=== PATIENT | male | born 1970 | race Two or more races ===

== ENCOUNTER 2016-08-10 21:12 | Inpatient (IN) | payer OTHER ==
[~2016-08-10] VITALS: Ht 165.1 cm; Wt 78.0 kg
--- NOTE | 2016-08-10 21:15 | NUR ---
PT LORI AND SINA, [facility], PT HAS BEEN VOMTING BLOOD ALL DAY TODAY AND PT STATES HE IS A CHRONIC DRINKER, PT STATES HE HAS NOT HAD A DRINK IN 2 DAYS, PT ON MONITOR, IN GOWN, GEO PLACEDMD IN ROOM, LABS DRAWN, PT ACTIVELY VOMITING BLOOD, WILL CONTINUE TO MONITOR.
[2016-08-10] MEDS ORDERED: ONDANSETRON HCL/PF - ER 4 MG/2 ML VIAL IV ONE (21:30)
[2016-08-10] MEDS ORDERED: PANTOPRAZOLE 80 MG in IV NS 0.9% 500 ML IV ONE (21:30)
[2016-08-10] MEDS ORDERED: OCTREOTIDE 50 MCG/ML AMPUL IV ONE (21:30)
[2016-08-10] MEDS ORDERED: PANTOPRAZOLE 80 MG in IV NS 0.9% 100 ML IV ONE (21:30)
[2016-08-10] MEDS ORDERED: OCTREOTIDE 1,250 MCG in IV NS 0.9% 250 ML IV ONE (21:30)
[2016-08-10 21:38] LABS: BASOPHILS # (AUTO) 0.1 /CMM (0.0-0.2); BASOPHILS % (AUTO) 0.9 % (0.0-2.0); EOSINOPHILS % (AUTO) 0.4 % (0.0-6.0); HEMATOCRIT 29 % (39-51); HEMOGLOBIN 9.7 g/dL (13.5-17.5); LYMPHOCYTES # (AUTO) 0.8 /CMM (0.8-4.8); LYMPHOCYTES % (AUTO) 15.2 % (20.0-44.0); MEAN CORPUSCULAR HEMOGLOBIN 30 PG (26.0-33.0); MEAN CORPUSCULAR HGB CONC 34 g/dl (31.0-36.0); MEAN CORPUSCULAR VOLUME 88 fL (80-96); MONOCYTES # (AUTO) 0.6 /CMM (0.1-1.30); MONOCYTES % (AUTO) 10.1 % (2.0-12.0); NEUTROPHILS # (AUTO) 4.1 /CMM (1.8-8.9); NEUTROPHILS % (AUTO) 73.4 % (43.0-81.0); RDW COEFFICIENT OF VARIATION 13.8 (11.5-15.0); RED BLOOD CELL COUNT(AUTO) 3.25 MIL/uL (4.5-6.0); WHITE BLOOD COUNT (AUTO) 5.6 K/uL (4.3-11.0)
[2016-08-10] MEDS ORDERED: PANTOPRAZOLE 40 MG VIAL ONE ×2 (21:38→21:40)
[2016-08-10] MEDS ORDERED: ONDANSETRON HCL/PF 4 MG/2 ML VIAL ONE (21:38)
[2016-08-10] MEDS ORDERED: IV NS 0.9% 500 ML IV ONE (21:38)
[2016-08-10] MEDS ORDERED: IV NS 0.9% 250 ML IV ONE (21:38)
[2016-08-10] MEDS ORDERED: OCTREOTIDE 100 MCG/ML VIAL ONE ×2 (21:39→21:42)
[2016-08-10] MEDS ORDERED: IV SET PRIMARY PUMP SET 1 EA INFUS.SET MC ONE ×4 (21:39→22:28)
[2016-08-10 21:40] LABS: PLATELET COUNT (AUTO) 38 /CMM (150-450)
[2016-08-10] MEDS ORDERED: OCTREOTIDE 500 MCG/ML VIAL ONE ×2 (21:40→21:57)
[2016-08-10] MEDS ORDERED: IV NS 0.9% 100 ML IV ONE (21:41)
[2016-08-10] MEDS ORDERED: IV NS 0.9% 1,000 ML ONE ×2 (21:45→21:51)
[2016-08-10] MEDS ORDERED: IV SET PRIMARY 1 EA INFUS.SET MC ONE ×2 (21:45→21:51)
[2016-08-10 21:54] LABS: INR 1.43 (0.87-1.13); PROTHROMBIN TIME 15.6 SECS (9.5-12.7)
[2016-08-10] MEDS ORDERED: IV NS 0.9% 1,000 ML BAG IV ONE ×2 (22:00)
[2016-08-10 22:12] LABS: ALBUMIN 2.9 g/dL (3.4-5.0); BILIRUBIN,DIRECT 0.6 mg/dL (0.0-0.2); BILIRUBIN,TOTAL 1.8 mg/dL (0.2-1.0); CALCIUM, SERUM 7.9 mg/dL (8.5-10.1); CREATININE 0.9 mg/dL (0.6-1.3); POTASSIUM 3.5 mmol/L (3.5-5.1); TOTAL PROTEIN, SERUM 7.1 g/dL (6.4-8.2)
--- NOTE | 2016-08-10 22:39 | NUR ---
PT NOT TOLERATING THE NGTUBE, AFTER 3 ATTEMPS MD BAIRD DECIDEDNOT TO DO NG TUBE AT THIS TIME WILL CONTINUE TO MONITOR.
[2016-08-10 22:45] LABS: ANISOCYTOSIS 1+; BAND % (MANUAL) 6 % (0.0-5.0); LYMPHOCYTES % (MANUAL) 6 % (16-48); MONOCYTES % (MANUAL) 8 % (0-11.0); NEUTROPHILS % (MANUAL) 80 (42-76); PLATELET ESTIMATE DECREASED
[2016-08-10] MEDS ORDERED: LORAZEPAM INJ 2 MG/ML VIAL ONE (22:50)
[2016-08-10] MEDS ORDERED: LORAZEPAM INJ 2 MG/ML VIAL IV ONE (23:00)
--- NOTE | 2016-08-10 23:20 | NUR ---
FIVE ROLL REFINER BATCH MIXER : ADMISSION TO ROOM 257 PT RECEIVED VIA GURNEY FROM ER. PT AWAKE AND ALERT X2 . PT ON ROOM AIR , SATURATING 95% . SR ON MONITOR. PT TRANSFERRED TO BED VIA GURNEY. PT URINATED IN URINAL . PT HAS SANDOSTATIN AND PROTONIX DRIP RUNNING THROUGH BOTH IV'S . PT BELONGINGS AT BEDSIDE. ERIBERTO GROUND CREWMAN MISSION SUPPORT AT BEDSIDE TO ASSESS PT.
[2016-08-10] MEDS ORDERED: LORAZEPAM INJ 2 MG/ML VIAL IV PRN (23:30)
[2016-08-10 23:52] VITALS: BP 99/60
[2016-08-11] VITALS (48 sets, daily range): BP systolic 93–150; BP diastolic 43–89
[2016-08-11] MEDS ORDERED: PHYTONADIONE INJ 10 MG/1 ML AMPUL SQ SCH
[2016-08-11] MEDS ORDERED: IV NS 0.9% 1,000 ML ONE (00:21)
[2016-08-11] MEDS ORDERED: BLOOD IV SET 1 EA INFUS.SET MC ONE ×2 (00:21→08:53)
[2016-08-11] MEDS ORDERED: IV NS 0.9% 250 ML IV ONE ×3 (00:21→08:54)
[2016-08-11] MEDS ORDERED: IV SET PRIMARY PUMP SET 1 EA INFUS.SET MC ONE ×2 (00:21→10:44)
[2016-08-11] MEDS ORDERED: PHYTONADIONE INJ 10 MG/1 ML AMPUL ONE (00:22)
[2016-08-11] MEDS: IV NS 0.9% 1,000 ML IV PRN ×2 (00:28→18:33)
--- NOTE | 2016-08-11 00:42 | NUR ---
DIRECTOR OF PHYSICAL EDUCATION: FIRST UNIT OF FFP RUNNING . NO REACTIONS NOTED AT THIS TIME.
--- NOTE | 2016-08-11 01:00 | NUR ---
DATA DESIGNER: PT C/O HEADACHE 01/26 . SPOKE TO ERIBERTO POLLACK . GAVE ORDER FOR MORPHINE IVP. WILL GIVE TO PT , DIM LIGHTS, AND REPOSITION NEEDED.
[2016-08-11] MEDS ORDERED: MORPHINE SULFATE INJ 2 MG/ML DISP.SYRIN ONE ×2 (01:05→04:32)
[2016-08-11] MEDS: MORPHINE SULFATE INJ 2 MG/ML DISP.SYRIN IV PRN ×6 (01:11→22:35)
--- NOTE | 2016-08-11 02:20 | NUR ---
VASCULAR TECHNOLOGIST: FIRST UNIT OF FFP TRANSFUSED . PT TOLERATED WELL.
[2016-08-11 02:23] LABS: CANNABINOID, URINE NEGATIVE (NEGATIVE); PHENCYCLIDINE SCREEN,URINE NEGATIVE (NEGATIVE)
--- NOTE | 2016-08-11 03:59 | NUR ---
PRECISION DYER: SECOND UNIT OF FFP TRANSFUSED . PT TOLERATED WELL.
[2016-08-11] MEDS ORDERED: PLATELET IV SET 1 EA INFUS.SET MC ONE (04:13)
[2016-08-11] MEDS ORDERED: ONDANSETRON HCL/PF 4 MG/2 ML VIAL ONE (04:33)
[2016-08-11] MEDS: ONDANSETRON HCL/PF 4 MG/2 ML VIAL IVP PRN ×2 (04:38→22:36)
--- NOTE | 2016-08-11 07:49 | NUR ---
WOUND CARE CONSULT: PT ABLE TO MOVE ABOUT INDEPENDENTLY AND IS CONTINENT AT THIS TIME. SKIN IS INTACT. WILL SEE PRN.
[2016-08-11 08:35] LABS: BASOPHILS % (AUTO) 0.5 % (0.0-2.0); EOSINOPHILS % (AUTO) 0.7 % (0.0-6.0); LYMPHOCYTES # (AUTO) 0.7 /CMM (0.8-4.8); LYMPHOCYTES % (AUTO) 32.3 % (20.0-44.0); MEAN CORPUSCULAR HEMOGLOBIN 29 PG (26.0-33.0); MEAN CORPUSCULAR HGB CONC 33 g/dl (31.0-36.0); MEAN CORPUSCULAR VOLUME 88 fL (80-96); MONOCYTES # (AUTO) 0.3 /CMM (0.1-1.30); MONOCYTES % (AUTO) 15.7 % (2.0-12.0); NEUTROPHILS % (AUTO) 50.8 % (43.0-81.0); RDW COEFFICIENT OF VARIATION 14.9 (11.5-15.0); RED BLOOD CELL COUNT(AUTO) 2.22 MIL/uL (4.5-6.0)
[2016-08-11 08:44] LABS: HEMATOCRIT 20 % (39-51); HEMOGLOBIN 6.4 g/dL (13.5-17.5)
[2016-08-11 08:45] LABS: PLATELET COUNT (AUTO) 46 /CMM (150-450)
[2016-08-11 08:47] LABS: CALCIUM, SERUM 7.3 mg/dL (8.5-10.1); CREATININE 0.8 mg/dL (0.6-1.3); PHOSPHORUS 3.4 mg/dL (2.5-4.9); POTASSIUM 3.8 mmol/L (3.5-5.1)
[2016-08-11] MEDS: PANTOPRAZOLE 80 MG in IV NS 0.9% 500 ML IV PRN ×2 (09:02→17:25)
[2016-08-11 09:19] LABS: MAGNESIUM 1.1 mg/dL (1.8-2.4)
[2016-08-11] MEDS ORDERED: ONDANSETRON HCL/PF 8 MG in IV D5W 50 ML IV PRN (10:00)
[2016-08-11 10:16] LABS: ALBUMIN 2.7 g/dL (3.4-5.0); BILIRUBIN,DIRECT 0.7 mg/dL (0.0-0.2); BILIRUBIN,TOTAL 2.2 mg/dL (0.2-1.0); TOTAL PROTEIN, SERUM 6.1 g/dL (6.4-8.2)
[2016-08-11 10:28] LABS: INR 1.41 (0.87-1.13); PROTHROMBIN TIME 15.4 SECS (9.5-12.7)
[2016-08-11 10:34] LABS: BAND % (MANUAL) 2 % (0.0-5.0); LYMPHOCYTES % (MANUAL) 13 % (16-48); MONOCYTES % (MANUAL) 12 % (0-11.0); NEUTROPHILS % (MANUAL) 73 (42-76)
[2016-08-11 10:35] LABS: ANISOCYTOSIS 1+; PLATELET ESTIMATE DECREASED
[2016-08-11] MEDS: Magnesium 1GM/D5W 100ML PREMIX 100 ML IV SCH ×2 (10:49→11:45)
[2016-08-11] MEDS ORDERED: SECONDARY IV SET 1 EA INFUS.SET MC ONE (10:54)
--- NOTE | 2016-08-11 11:15 | NUR ---
Social service consult by JACEK Wills for possible homelessness. Per H&P report, pt is a 46-year-old male who was brought in EMS to the emergency department for treatment and evaluation of 2 episodes of hematemesis while in the shelter; at the time of evaluation while in the ED the patient was in [employer] custody. While the patient was in the emergency department, he had 3 episodes of hematemesis, moderate amount, fresh blood noted. The patient denies any significant medical history except for the chronic alcohol use for the last 10 years. However, he admits to have been drinking more than usual for the last fe months. He has been drinking 4-8 bottles of beer on a daily basis. The patient was subsequently admitted to the intensive care unit for acute upper gastrointestinal bleeding. The patient was taken off the [employer] custody the moment the police knew that the patient will be admitted to the intensive care unit. PARAMJIT met with pt. bedside. Pt. is A&O x 4. Pt. is friendly and cooperative during the assessment. Pt. was involved in a DUI and was [facility]. However, pt. is no longer in custody once he was admitted to [facility]. Pt. informed SW he has been homeless for about a year. Pt. has been living in his car. Pt. was living with his and children prior to being homeless. Pt. is . Pt. has a history of alcoholism. Pt. has been drinking for the past 10 years and has increased his alcohol consumption within the last six months. Pt. drinks approximately 6-8 beers per day on an empty stomach. Pt. states he doesn't have money to buy food. PARAMJIT informed pt. that he has money to buy beer. Pt. acknowledged and smiled at SW. Pt. states he use to go to AA at [facility]. PARAMJIT offered pt. resources to alcohol treatment programs and AA. Pt. declined and stated he will be going back to AA at [facility]. Pt. informed PARAMJIT he will go live with his sister in [place]. Once medically cleared pt. would like to go to his car in [place]. PARAMJIT to give pt. bus token to get to his car once pt. is medically cleared.
--- NOTE | 2016-08-11 12:21 | NUR ---
Pre-Op Patient left ICU with 2nd PRBC running. Continued Protonix drip, Sandostatin drip and IVF including Mag replacement. Endorsed to PACU nurse. EGD Consent, blood consent and anesthesia consent on the chart. Vitals stable.
[2016-08-11] MEDS ORDERED: SUCRALFATE 1 G/10 ML UDC GT ONE (13:30)
[2016-08-11] MEDS ORDERED: ANESTHESIA TRAY IN PYXIS 1 EA TRAY MC ONE (13:49)
[2016-08-11 15:35] LABS: HEMOGLOBIN 8.4 g/dL (13.5-17.5)
[2016-08-11] MEDS: OCTREOTIDE 1,250 MCG in IV NS 0.9% 247.5 ML IV PRN (17:25)
--- NOTE | 2016-08-11 22:35 | NUR ---
AUTO ELECTRICAL TECHNICIAN PT C/O 01/26 HEADACHE AND NAUSEA. VITALS STABLE . PRN ZOFRAN AND MORPHINE GIVEN
[2016-08-12] VITALS (26 sets, daily range): BP systolic 94–153; BP diastolic 39–85
[2016-08-12] MEDS: PANTOPRAZOLE 80 MG in IV NS 0.9% 500 ML IV PRN ×3 (02:11→22:55)
[2016-08-12] MEDS: ONDANSETRON HCL/PF 4 MG/2 ML VIAL IVP PRN (04:00)
--- NOTE | 2016-08-12 04:00 | NUR ---
DISTRIBUTION AGENT: PT IS C/O NAUSEA. PRN ZOFRAN GIVEN. BED BATH AND LINEN CHANGE DONE PT TOLERATED WELL. HOB ELEVATED AND ORAL CARE DONE.
[2016-08-12 05:03] LABS: BASOPHILS % (AUTO) 0.8 % (0.0-2.0); EOSINOPHILS # (AUTO) 0.1 /CMM (0.0-0.7); EOSINOPHILS % (AUTO) 2.4 % (0.0-6.0); HEMATOCRIT 25 % (39-51); HEMOGLOBIN 8.4 g/dL (13.5-17.5); LYMPHOCYTES # (AUTO) 0.7 /CMM (0.8-4.8); MEAN CORPUSCULAR HEMOGLOBIN 29 PG (26.0-33.0); MEAN CORPUSCULAR HGB CONC 33 g/dl (31.0-36.0); MEAN CORPUSCULAR VOLUME 88 fL (80-96); MONOCYTES # (AUTO) 0.3 /CMM (0.1-1.30); MONOCYTES % (AUTO) 11.4 % (2.0-12.0); NEUTROPHILS # (AUTO) 1.2 /CMM (1.8-8.9); NEUTROPHILS % (AUTO) 55.4 % (43.0-81.0); RED BLOOD CELL COUNT(AUTO) 2.87 MIL/uL (4.5-6.0); WHITE BLOOD COUNT (AUTO) 2.2 K/uL (4.3-11.0)
[2016-08-12 05:11] LABS: CALCIUM, SERUM 7.5 mg/dL (8.5-10.1); CREATININE 0.7 mg/dL (0.6-1.3); POTASSIUM 3.4 mmol/L (3.5-5.1)
[2016-08-12 05:19] LABS: PLATELET COUNT (AUTO) 49 /CMM (150-450)
[2016-08-12] MEDS: IV NS 0.9% 1,000 ML IV PRN ×2 (06:14→20:25)
--- NOTE | 2016-08-12 06:15 | NUR ---
JUNIOR ENGINEER : PT C/O ANXIETY , RELAXATION TECHNIQUES TAUGHT AND PT RECEPTIVE TO TEACHINGS. PRN ATIVAN GIVEN PER REQUEST OF PT.
[2016-08-12 06:24] LABS: EOSINOPHILS % (MANUAL) 1 % (0-4); LYMPHOCYTES % (MANUAL) 32 % (16-48); MONOCYTES % (MANUAL) 8 % (0-11.0); NEUTROPHILS % (MANUAL) 59 (42-76)
[2016-08-12 06:25] LABS: PLATELET ESTIMATE DECREASED
--- NOTE | 2016-08-12 07:36 | NUR ---
ICU/RN INITIAL NOTES,AM RECEIVED PT ALERT, AWAKE, ORIENTED RESTING IN BED. PT [place] SPEAKING. ABLE TO FOLLOW ALL COMMANDS. PT ON ROOM AIR, NO ACUTE DISTRESS NOTED AT THIS TIME. PT ON TELE, SINUS. PT CURRENTLY NPO, ICE CHIPS ALLOWED. URINAL AT BEDSIDE. PIV'S PATENT AND INTACT, NO S/S OF INFECTION OR INFILTRATION NOTED. IV PROTONIX, SANDOSTATIN AND IV FLUIDS INFUSING ORDERED. ALL NEEDS WILL BE MET, SAFETY MEASURES TAKEN, BED IN LOW POSITION, SIDE RAILS UP, CALL LIGHT WITHIN REACH. WILL CONTINUE CARE Addendum: 08/12/16 at 0740 by WAYNE TELLEZ RN NO SIGNS OF BLEEDING SEEN, WILL CONTINUE TO ASSESS
--- NOTE | 2016-08-12 10:00 | NUR ---
ICU/RN: ERIBERTO YOST AT BEDSIDE. PT ASSESSED. ORDERS RECEIVED TO DOWNGRADE PT TO [facility]. NEED TO CONTINUE PROTONIX, SANDOSTATIN DRIPS. BOWEL SOUNDS NOTED. VSS. WILL CONTINUE TO MONITOR AND ASSESS.
[2016-08-12] MEDS ORDERED: SECONDARY IV SET 1 EA INFUS.SET MC ONE (11:30)
[2016-08-12] MEDS ORDERED: POTASSIUM CHLORIDE 20 MEQ POWDER PACKET PO SCH (11:30)
[2016-08-12] MEDS: Magnesium 1GM/D5W 100ML PREMIX 100 ML IV SCH ×2 (11:38→12:49)
[2016-08-12] MEDS: SUCRALFATE 1 G/10 ML UDC PO SCH ×3 (12:17→20:29)
--- NOTE | 2016-08-12 19:15 | NUR ---
ICU/RN ENDING NOTES, REPORT ENDORSED TO NIGHT NURSE. PT ALERT, AWAKE, FOLLOWS COMMANDS. ALL NEEDS MET. VSS. PT ON ROOM AIR, NO DISTRESS. PT PENDING FOR TRANSFER TO [facility]. MAGNESIUM REPLACED, POTASSIUM REPLACED PER MD ORDERS. IV FLUIDS INFUSING ORDERED. ALL NEEDS MET. WILL CONTINUE CARE
--- NOTE | 2016-08-12 19:52 | NUR ---
LECTURER IN COMPUTER SCIENCE. INITIAL ASSESSMENT. RECEIVED THE PT REST ON THE BED. AWAKE, ALERT, FOLLOW COMMANDS. SENIOR ESCROW OFFICER SHOWING NSR. PT ON ROOM AIR SAT 98%. NO ACUTE DISTRESS NOTED. IV RT HAND 18G, LT FA 20G,LT HAND 16. SANDOSTATIN 10ML/H,PROTONIX 50ML/H,NS 75ML/H. HOB ELEVATED. AFEBRILE. NO ACUTE BLEEDING NOTED. WILL CONTINUE TO MONITOR VITALS.
--- NOTE | 2016-08-12 19:55 | NUR ---
CPR INSTRUCTOR. TRANSFER THE PT TO [facility] ROOM 117, VIA BED. REPORT GIVEN TO GWENDOLYN . PT IS STABLE.
--- NOTE | 2016-08-12 20:02 | NUR ---
DATA ANALYST ETL DEVELOPER. PT C/O HEADACHE. MORPHINE IV GIVEN PER ORDERED.
[2016-08-12] MEDS: MORPHINE SULFATE INJ 2 MG/ML DISP.SYRIN IV PRN (20:04)
[2016-08-12] MEDS: OCTREOTIDE 1,250 MCG in IV NS 0.9% 247.5 ML IV PRN (20:05)
--- NOTE | 2016-08-12 20:22 | NUR ---
TELE-TD/DEPARTMENT ASSISTANT RECEIVED PT IN BED 117-2 ACCOMPANIED BY ICU STAFF. PT ORIENTED TO ROOM AND CALL LIGHT USE. VSS STABLE. WILL CONTINUE TO MONITOR.
[2016-08-13] VITALS: BP 127/83
[2016-08-13] MEDS: MORPHINE SULFATE INJ 2 MG/ML DISP.SYRIN IV PRN ×4 (02:38→20:32)
[2016-08-13 04:00] VITALS: BP 117/72
[2016-08-13 07:26] LABS: BASOPHILS % (AUTO) 0.3 % (0.0-2.0); EOSINOPHILS # (AUTO) 0.1 /CMM (0.0-0.7); EOSINOPHILS % (AUTO) 2.3 % (0.0-6.0); HEMATOCRIT 24 % (39-51); HEMOGLOBIN 8.1 g/dL (13.5-17.5); LYMPHOCYTES # (AUTO) 0.9 /CMM (0.8-4.8); LYMPHOCYTES % (AUTO) 32.5 % (20.0-44.0); MEAN CORPUSCULAR HEMOGLOBIN 30 PG (26.0-33.0); MEAN CORPUSCULAR HGB CONC 34 g/dl (31.0-36.0); MEAN CORPUSCULAR VOLUME 88 fL (80-96); MONOCYTES # (AUTO) 0.3 /CMM (0.1-1.30); MONOCYTES % (AUTO) 10.7 % (2.0-12.0); NEUTROPHILS # (AUTO) 1.5 /CMM (1.8-8.9); NEUTROPHILS % (AUTO) 54.2 % (43.0-81.0); PLATELET COUNT (AUTO) 58 /CMM (150-450); RDW COEFFICIENT OF VARIATION 14.6 (11.5-15.0); RED BLOOD CELL COUNT(AUTO) 2.74 MIL/uL (4.5-6.0); WHITE BLOOD COUNT (AUTO) 2.7 K/uL (4.3-11.0)
[2016-08-13] MEDS: SUCRALFATE 1 G/10 ML UDC PO SCH ×4 (07:33→20:28)
--- NOTE | 2016-08-13 07:35 | NUR ---
ANNAMARIE/RN - NOTES RECEIVED PT IN BED AWAKE AOX4. NO ACUTE DISTRESS. RESPIRATIONS ARE EVEN AND UNLABORED. COMPLAINS OF LEFT SIDED ABDOMINAL PAIN ON PAIN SCALE 9 OUT OF 10. ADMINISTERED MORPHINE 2MG IVP ORDERED FOR PRN PAIN. COMFORT MEASURES IN PLACE. ON TELE READING SR 65. IVF, IV PROTONIX, IV SANDOSTATIN INFUSING WELL. SAFETY AND COMFORT MEASURES IN PLACE. WILL CONTINUE TO MONITOR PT CLOSELY.
[2016-08-13 07:47] LABS: CALCIUM, SERUM 7.4 mg/dL (8.5-10.1); CREATININE 0.7 mg/dL (0.6-1.3); MAGNESIUM 1.6 mg/dL (1.8-2.4); POTASSIUM 3.4 mmol/L (3.5-5.1)
[2016-08-13 08:00] VITALS: BP 117/71
[2016-08-13 08:43] LABS: ANISOCYTOSIS 1+; BAND % (MANUAL) 1 % (0.0-5.0); EOSINOPHILS % (MANUAL) 3 % (0-4); LYMPHOCYTES % (MANUAL) 41 % (16-48); MONOCYTES % (MANUAL) 9 % (0-11.0); NEUTROPHILS % (MANUAL) 46 (42-76); PLATELET ESTIMATE DECREASED
[2016-08-13 08:44] LABS: HYPOCHROMASIA 1+
[2016-08-13] MEDS: IV NS 0.9% 1,000 ML IV PRN ×2 (09:01→23:49)
[2016-08-13] MEDS: PANTOPRAZOLE 80 MG in IV NS 0.9% 500 ML IV PRN ×2 (09:01→20:27)
[2016-08-13] MEDS ORDERED: IV SET PRIMARY PUMP SET 1 EA INFUS.SET MC ONE (10:49)
[2016-08-13] MEDS: Magnesium 1GM/D5W 100ML PREMIX 100 ML IV SCH ×2 (10:50→12:00)
[2016-08-13] MEDS: POTASSIUM CL. PREMIX PERIPHER. 50 ML IV SCH ×2 (10:54→12:00)
[2016-08-13 12:00] VITALS: BP 105/74
--- NOTE | 2016-08-13 15:21 | NUR ---
ANNAMARIE/RN - NOTES PT COMPLAINS OF LEFT SIDED ABDOMINAL PAIN ON PAIN SCALE 9 OUT OF 10. ADMINISTERED MORPHINE 2MG IVP ORDERED FOR PRN PAIN. COMFORT MEASURES IN PLACE. WILL REASSESS PAIN ACCORDINGLY.
[2016-08-13 16:00] VITALS: BP 109/73
[2016-08-13 20:00] VITALS: BP 125/77
[2016-08-13] MEDS: OCTREOTIDE 1,250 MCG in IV NS 0.9% 247.5 ML IV PRN (20:25)
[2016-08-14] VITALS (7 sets, daily range): BP systolic 108–123; BP diastolic 58–85
[2016-08-14] MEDS: PANTOPRAZOLE 80 MG in IV NS 0.9% 500 ML IV PRN (06:00)
[2016-08-14] MEDS: MORPHINE SULFATE INJ 2 MG/ML DISP.SYRIN IV PRN ×5 (06:02→22:35)
--- NOTE | 2016-08-14 06:45 | NUR ---
TD RN: NO SIGNIFICANT XIMENA DURING THE SHIFT. PT REMAINED A/O X 3. ON R/A WT NO ACUTE DISTRESS. GIVEN PAIN MEDS ORDERED FOR LOWER ABDOMINAL PAIN (8/10) WT GOOD EFFECT (0/10). CONTINUE ON SANDOSTATIN DRIP AT 50MCG/HR, PROTONIX DRIP AND NS AT 75ML/HR WT NO S/S OF IV INFILTRATION. GOOD URINE OUTPUT VIA URINAL. NO BOWEL MOVEMENT NOTED. NO ACTIVE BLEEDING. ALL NEEDS MET. SAFETY PRECAUTION NOTED AT ALL TIMES.
[2016-08-14 07:33] LABS: BASOPHILS % (AUTO) 0.5 % (0.0-2.0); EOSINOPHILS # (AUTO) 0.1 /CMM (0.0-0.7); EOSINOPHILS % (AUTO) 2.9 % (0.0-6.0); HEMATOCRIT 25 % (39-51); HEMOGLOBIN 8.6 g/dL (13.5-17.5); LYMPHOCYTES # (AUTO) 0.8 /CMM (0.8-4.8); LYMPHOCYTES % (AUTO) 27.5 % (20.0-44.0); MEAN CORPUSCULAR HEMOGLOBIN 30 PG (26.0-33.0); MEAN CORPUSCULAR HGB CONC 34 g/dl (31.0-36.0); MEAN CORPUSCULAR VOLUME 88 fL (80-96); MONOCYTES # (AUTO) 0.4 /CMM (0.1-1.30); MONOCYTES % (AUTO) 14.3 % (2.0-12.0); NEUTROPHILS # (AUTO) 1.5 /CMM (1.8-8.9); NEUTROPHILS % (AUTO) 54.8 % (43.0-81.0); PLATELET COUNT (AUTO) 70 /CMM (150-450); RDW COEFFICIENT OF VARIATION 14.8 (11.5-15.0); RED BLOOD CELL COUNT(AUTO) 2.88 MIL/uL (4.5-6.0); WHITE BLOOD COUNT (AUTO) 2.8 K/uL (4.3-11.0)
[2016-08-14 07:48] LABS: CALCIUM, SERUM 7.5 mg/dL (8.5-10.1); CREATININE 0.7 mg/dL (0.6-1.3); MAGNESIUM 1.4 mg/dL (1.8-2.4); POTASSIUM 3.3 mmol/L (3.5-5.1)
[2016-08-14] MEDS: SUCRALFATE 1 G/10 ML UDC PO SCH ×4 (08:42→21:18)
[2016-08-14 08:53] LABS: ANISOCYTOSIS 2+; EOSINOPHILS % (MANUAL) 2 % (0-4); LYMPHOCYTES % (MANUAL) 18 % (16-48); MONOCYTES % (MANUAL) 7 % (0-11.0); NEUTROPHILS % (MANUAL) 73 (42-76); PLATELET ESTIMATE DECREASED
[2016-08-14] MEDS: Magnesium 1GM/D5W 100ML PREMIX 100 ML IV SCH ×4 (11:46→15:39)
[2016-08-14] MEDS: IV NS 0.9% 1,000 ML IV PRN (11:54)
[2016-08-14] MEDS ORDERED: POTASSIUM CHLORIDE 20 MEQ TAB.PRT.SR PO SCH (12:30)
[2016-08-15] VITALS: BP 119/81
[2016-08-15 00:02] VITALS: BP 119/81
[2016-08-15 04:00] VITALS: BP_SYST 117; BP_DIAS 71; BP_DIAS 72
[2016-08-15] MEDS: MORPHINE SULFATE INJ 2 MG/ML DISP.SYRIN IV PRN (05:52)
[2016-08-15 07:13] LABS: CALCIUM, SERUM 7.9 mg/dL (8.5-10.1); CREATININE 0.7 mg/dL (0.6-1.3); MAGNESIUM 1.4 mg/dL (1.8-2.4); POTASSIUM 3.3 mmol/L (3.5-5.1)
[2016-08-15] MEDS ORDERED: PANTOPRAZOLE 40 MG TABLET.DR PO SCH (07:30)
--- NOTE | 2016-08-15 07:58 | NUR ---
pt continue to have pain in the abdomen, had bm this morning ,no reported bleeding, morphine q4hrs given, not sleeping well overnight,vss,afebrile.
[2016-08-15 08:00] VITALS: BP 122/83
--- NOTE | 2016-08-15 08:00 | NUR ---
TELE1/RN AM SHIFT INITIAL NOTES RECEIVED PT AWAKE SITTING IN BED. PT A/O X 4, DENIES ANY SYMPTOMS AT THIS TIME. NO ACUTE CHANGE OF CONDITION NOTED. PT IN ROOM AIR SATURATING @ 96%, ON TELE WITH SINUS RHYTHM, HR 79. NOTED WITH DISTENDED ABDOMEN, IV SITES FLUSHED, PATENT WITH NO S/S OF INFECTION. PT IS COMFORTABLE AT THIS TIME. SCHEDULED AM MEDS TO BE GIVEN. CL WITHIN REACHED AND SAFETY MAINTAINED. ON GOING MONITORING.
[2016-08-15] MEDS: SUCRALFATE 1 G/10 ML UDC PO SCH ×3 (09:00→16:50)
[2016-08-15 12:00] VITALS: BP 108/69
--- NOTE | 2016-08-15 12:00 | NUR ---
TELE1/RN NOON ROUNDS NO ACUTE CHANGE OF CONDITION. MONITORING CONTINUED.
[2016-08-15] MEDS ORDERED: SECONDARY IV SET 1 EA INFUS.SET MC ONE (12:21)
[2016-08-15] MEDS ORDERED: IV SET PRIMARY PUMP SET 1 EA INFUS.SET MC ONE (12:21)
[2016-08-15] MEDS ORDERED: IV NS 0.9% 250 ML IV ONE (12:22)
[2016-08-15] MEDS ORDERED: POTASSIUM CHLORIDE 20 MEQ TAB.PRT.SR PO ONE (12:30)
[2016-08-15] MEDS: Magnesium 1GM/D5W 100ML PREMIX 100 ML IV SCH ×4 (12:33→16:50)
[2016-08-15 16:00] VITALS: BP 126/80
--- NOTE | 2016-08-15 18:30 | NUR ---
TELE1/OIL AND GAS WELL TREATMENT OPERATOR - HOME DISCHARGE INSTRUCTIONS GIVEN TO PT. VERBALIZED UNDERSTANDING. DISCHARGE DOCUMENTS AND PRESCRIPTION GIVEN TO PT. PERSONAL BELONGINGS RETURNED TO PT, INVENTORY LOG SIGNED OFF. ID BANDS REMOVED. IV SITES REMOVED, PRESSURE DRESSING APPLIED, NO S/S OF INFECTION. PT LEFT TELE1 UNIT IN STABLE CONDITION. WALKED OUT TO [facility] WITH A STEADY GAIT TO AN AWAITING TAXI CAB, VOUCHER GIVEN.
== END 2016-08-15 18:30 | disposition home or self-care (01) | DRG 432 ==
LOC: ER 21:15 → ICU 22:58 → TELE-TD 08-12 20:13 → TELE1 08-14 10:34
PROVIDERS: ADMIT Nurse Practitioner Acute Care; ATTEND Nurse Practitioner Acute Care
PROC: 30233N1 Transfusion of Nonautologous Red Blood Cells into Peripheral Vein, Percutaneous Approach (ICD-10-PCS; principal; 2016-08-11 12:47)
PROC: 30233K1 Transfusion of Nonautologous Frozen Plasma into Peripheral Vein, Percutaneous Approach (ICD-10-PCS; principal; 2016-08-11 12:47)
PROC: 06L34CZ Occlusion of Esophageal Vein with Extraluminal Device, Percutaneous Endoscopic Approach (ICD-10-PCS; principal; 2016-08-11 12:47)
PROC: 30233R1 Transfusion of Nonautologous Platelets into Peripheral Vein, Percutaneous Approach (ICD-10-PCS; principal; 2016-08-11 12:47)
DX: K74.60 Unspecified cirrhosis of liver (principal); I85.11 Secondary esophageal varices with bleeding; D68.9 Coagulation defect, unspecified; K76.6 Portal hypertension; D69.59 Other secondary thrombocytopenia; F10.20 Alcohol dependence, uncomplicated; K31.89 Other diseases of stomach and duodenum; D64.9 Anemia, unspecified; K76.9 Liver disease, unspecified; E83.42 Hypomagnesemia; E87.6 Hypokalemia; Z59.0 Homelessness; E83.51 Hypocalcemia
CPT/HCPCS: 36415; 71010-TC; 80048-TC; 80076-TC; 80305; 82962-TC; 83690-TC; 83735-TC; 84100-TC; 85025-TC; 85027-TC; 85610-TC; 85730-TC; 86850-TC; 86921-TC; 87081-TC; A4606; C9113; G0480; J2060; J2270; J2354; J2405; J2704; J3430; J3475; J3480; J7030; J7040; J7050; J7060; P9016-BL; P9017-BL; P9034-BL; Z7610